=== PATIENT | female | born 2000 | race Caucasian/White ===

== ENCOUNTER 2019-05-12 07:19 | Emergency (ER) | payer OTHER ==
[~2019-05-12] VITALS: Ht 147.3 cm; Wt 74.9 kg
[2019-05-12 07:28] VITALS: BP 135/78
--- NOTE | 2019-05-12 07:35 | NUR ---
BIB FRIEND. AAO X4 C/O DYSURIA, LOWER ABDOMINAL PAIN RADIATING TO LEFT FLANK X 2 WEEKS. PT STATES SHE HAD FEVER AND CHILLS LAST NIGHT. PT TX OF TYLENOL AT 0400 TODAY WITH MILD RELIEF. PT DENIES N/V/D, SOB. PMH: DENIES MED RX:DENIES ALLERGY: DENIES
[2019-05-12 08:40] VITALS: BP 135/78
--- NOTE | 2019-05-12 08:41 | NUR ---
Patient discharged with v/s stable. Written and verbal after care instructions given and explained. Patient alert, oriented and verbalized understanding of instructions. Ambulatory with steady gait. All questions addressed prior to discharge. ID band removed. Patient advised to follow up with PMD. Rx of Macrobid, Pyridium given. Patient educated on indication of medication including possible reaction and side effects. Opportunity to ask questions provided and answered.
== END 2019-05-12 08:41 | disposition home or self-care (01) ==
LOC: MED 07:19
DX: N39.0 Urinary tract infection, site not specified (principal); R11.2 Nausea with vomiting, unspecified
CPT/HCPCS: 81002; 81025; 99283

== ENCOUNTER 2019-05-18 22:26 | Emergency (ER) | payer OTHER ==
[~2019-05-18] VITALS: Ht 147.3 cm; Wt 74.4 kg
[2019-05-18 22:36] VITALS: BP 127/94
[2019-05-18] MEDS ORDERED: KETOROLAC 60 MG/2 ML VIAL IM ONE (22:45)
[2019-05-18 23:12] VITALS: BP 142/96
== END 2019-05-18 23:12 | disposition home or self-care (01) ==
LOC: MED 22:26
DX: M54.5 Low back pain (principal); F12.10 Cannabis abuse, uncomplicated
CPT/HCPCS: 81002; 81025; 96372; 99283; J1885

== ENCOUNTER 2020-04-19 22:13 | Emergency (ER) | payer SELFPAY ==
[~2020-04-19] VITALS: Ht 147.3 cm; Wt 75.3 kg
[2020-04-19 22:44] VITALS: BP 135/83
--- NOTE | 2020-04-19 22:49 | NUR ---
PT AMBULATED TO LOBBY TO A/W BED
--- NOTE | 2020-04-19 23:02 | NUR ---
PT TAKEN TO XRAY
--- NOTE | 2020-04-19 23:08 | NUR ---
PT RETURN FROM XRAY TO ER BED 5
[2020-04-19] MEDS ORDERED: KETOROLAC 30 MG/ML VIAL IM ONE (23:25)
--- NOTE | 2020-04-19 23:25 | NUR ---
19 Y/O FEMALE PRESENTS TO ER WITH C/O RIGHT ARM/ELBOW PAIN S/P FALL X 2 HRS AGO. 06/12 PAIN. PT STATES SHE FELL ON THE BOTTOW STEPS AT THE END OF HER STAIRS AT HOME. DENIES HEAD TRAUMA, OR LOC, NAUSEA, VOMITING, DIARRHEA, NO DEFORMITIES NOTED ON THE RIGHT ARM/ELBOW. DENIES SOB, COUGH, FEVER, CHILLS. R/R EQUAL, AND UNLABORED, VSS. SIDE RAIL X1, BED IN LOW POSITION, WILL CONTINUE TO MONITOR. LMP: 03/16/20 DENIES PMH NKDA
--- NOTE | 2020-04-19 23:33 | NUR ---
SLINS SIZE MEDIUM PLACED ON PT R ARM
[2020-04-20 00:06] VITALS: BP 135/83
== END 2020-04-20 00:06 | disposition home or self-care (01) ==
LOC: MED 22:13
DX: S46.811A Strain of other muscles, fascia and tendons at shoulder and upper arm level, right arm, initial encounter (principal); W18.30XA Fall on same level, unspecified, initial encounter; Y93.89 Activity, other specified; Y92.89 Other specified places as the place of occurrence of the external cause; Y99.8 Other external cause status
CPT/HCPCS: 73080; 96372; 99283; J1885

== ENCOUNTER 2021-05-19 16:51 | Emergency (ER) | payer OTHER ==
[~2021-05-19] VITALS: Ht 146.1 cm; Wt 74.6 kg
[2021-05-19 17:05] VITALS: BP 129/72
--- NOTE | 2021-05-19 17:21 | NUR ---
BIB SELF C/O LOWER ABDOMINAL PAIN X 3 DAYS. PMH: DENIES.DENIES N/V/D; SKIN IS PINK/WARM/DRY; AAOX4 WITH EVEN AND STEADY GAIT; LUNGS CLEAR BL; HR EVEN AND REGULAR; PT DENIES ANY FEVER, CP, SOB, OR COUGH AT THIS TIME; PATIENT STATES PAIN OF 9/10 AT THIS TIME. ABD SOFT, NO TENDERNESS.
[2021-05-19] MEDS ORDERED: DICYCLOMINE HCL LIQUID 20 MG, ALUMINUM HYD/MAG/SIMETHICONE 30 ML, LIDOCAINE VISCOUS 2% ... PO ONE ×3 (17:55)
[2021-05-19] MEDS ORDERED: ONDANSETRON 4 MG ODT PO ONE (17:55)
--- NOTE | 2021-05-19 17:56 | NUR ---
DR. MCKINNEY WITH PT IN TRIAGE FOR FURTHER EVALUATION.
--- NOTE | 2021-05-19 17:57 | NUR ---
PT TO WAIT IN LOBBY.
[2021-05-19] MEDS ORDERED: DICYCLOMINE HCL LIQUID 10 MG/5 ML UDC ONE (18:02)
[2021-05-19] MEDS ORDERED: ALUMINUM HYD/MAG/SIMETHICONE 30 ML UDC ONE (18:02)
--- NOTE | 2021-05-19 18:07 | NUR ---
SODA JERKER WITH PT.
[2021-05-19 18:17] LABS: BASOPHILS # (AUTO) 0.1 K/uL (0.00-0.22); BASOPHILS % (AUTO) 0.6 % (0.0-2.0); EOSINOPHILS # (AUTO) 0.1 K/uL (0-0.4); EOSINOPHILS % (AUTO) 0.7 % (0.0-4.0); HEMOGLOBIN 15.6 g/dL (12.0-16.0); LYMPHOCYTES # (AUTO) 2.5 K/uL (2.5-16.5); MEAN CORPUSCULAR HEMOGLOBIN 33 pg (27-31); MEAN CORPUSCULAR HGB CONC 35 g/dL (33-37); MEAN CORPUSCULAR VOLUME 94.3 fL (80-94); MONOCYTES # (AUTO) 0.8 K/uL (0.8-1.0); MONOCYTES % (AUTO) 6.9 % (1.7-9.3); NEUTROPHILS # (AUTO) 7.5 K/uL (1.8-7.7); NEUTROPHILS % (AUTO) 68.8 % (42.2-75.2); PLATELET COUNT (AUTO) 354 K/uL (140-450); RED BLOOD CELL COUNT(AUTO) 4.77 MIL/uL (4.20-5.40); RED CELL DISTRIBUTION WIDTH 13.5 % (11.6-13.7); WHITE BLOOD COUNT (AUTO) 10.9 K/uL (4.8-10.8)
[2021-05-19] MEDS ORDERED: FAMO-92 PO (21:20)
[2021-05-19] MEDS ORDERED: ONDA-24 SL (21:20)
[2021-05-19 21:32] LABS: ALBUMIN 4.3 g/dL (3.4-5.0); ANION GAP 13.9 (8-16); CARBON DIOXIDE 27.4 mmol/L (21-32); CREATININE 0.8 mg/dL (0.6-1.3); POTASSIUM 4.3 mmol/L (3.5-5.1); TOTAL BILIRUBIN 0.2 mg/dL (0.0-1.0)
[2021-05-19 22:26] VITALS: BP 118/71
--- NOTE | 2021-05-19 22:28 | NUR ---
Patient discharged with v/s stable. Written and verbal after care instructions given and explained. Patient alert, oriented and verbalized understanding of instructions. Ambulatory with steady gait. All questions addressed prior to discharge. ID band removed. Patient advised to follow up with PMD. Rx of ZOFRAN AND PEPCID given. Patient educated on indication of medication including possible reaction and side effects. Opportunity to ask questions provided and answered.
== END 2021-05-19 22:26 | disposition home or self-care (01) ==
LOC: MED 16:51
DX: K29.70 Gastritis, unspecified, without bleeding (principal); R19.7 Diarrhea, unspecified; R11.0 Nausea; Z79.899 Other long term (current) drug therapy
CPT/HCPCS: 36415; 80053; 81025; 83690; 85025; 99283; Q0162; 81002

== ENCOUNTER 2021-09-05 20:17 | Emergency (ER) | payer OTHER ==
[~2021-09-05 20:17] MED LIST: FAMO-92 PO; ONDA-188 SL
--- NOTE | 2021-09-05 20:38 | NUR ---
PATIENT LEFT WITHOUT BEING SEEN BY DR. GUEVARA. NO FURTHER CARE PROVIDED FOR PATIENT.
== END 2021-09-05 20:38 | disposition left against medical advice (07) ==
LOC: MED 20:17
DX: R10.9 Unspecified abdominal pain (principal); Z53.21 Procedure and treatment not carried out due to patient leaving prior to being seen by health care provider

== ENCOUNTER 2022-06-09 12:04 | Emergency (ER) | payer OTHER ==
[~2022-06-09] VITALS: Ht 154.9 cm; Wt 71.2 kg
[2022-06-09 12:15] VITALS: BP 143/92
[2022-06-09] MEDS ORDERED: predniSONE 20 MG TAB PO ONE (13:00)
[2022-06-09] MEDS ORDERED: FAMOTIDINE 20 MG TAB PO ONE (13:00)
[2022-06-09] MEDS ORDERED: diphenhydrAMINE 50 MG CAP PO ONE (13:00)
--- NOTE | 2022-06-09 13:05 | NUR ---
PT AMBULATED TO ER BED 6
[2022-06-09] MEDS ORDERED: PRED20TA5 PO (13:13)
[2022-06-09] MEDS ORDERED: DIPH25TA53 PO (13:13)
[2022-06-09] MEDS ORDERED: LORA10SG1 PO (13:13)
[2022-06-09 13:24] VITALS: BP 128/84
--- NOTE | 2022-06-09 13:24 | NUR ---
Patient discharged with v/s stable. Written and verbal after care instructions given. Patient alert, oriented and verbalized understanding of instructions. Ambulatory with steady gait. All questions addressed prior to discharge. ID band removed. Patient advised to follow up with PMD. Rx of Benadryl, Claritin and Prednisone given. Opportunity to ask questions provided and answered.
--- NOTE | 2022-06-09 13:25 | NUR ---
The patient's care was reviewed and supervised by Caroline Louis RN, RN.
== END 2022-06-09 13:24 | disposition home or self-care (01) ==
LOC: MED 12:04
DX: R03.0 Elevated blood-pressure reading, without diagnosis of hypertension (principal); L29.9 Pruritus, unspecified; Z79.899 Other long term (current) drug therapy
CPT/HCPCS: 99284; J7512; Q0163

== ENCOUNTER 2023-03-11 12:26 | Emergency (ER) | payer OTHER ==
[~2023-03-11] VITALS: Ht 149.9 cm; Wt 70.5 kg
[~2023-03-11 12:26] MED LIST changes: +DIPH25TA53 PO; +LORA10SG1 PO; +PRED20TA5 PO
[2023-03-11 12:43] VITALS: BP 130/87; PULSE 96; RESP 20; TEMP 98.1; O2SAT 99
--- NOTE | 2023-03-11 13:09 | NUR ---
CALLED BY TELETYPE TECHNICIAN [facility] BLOOD WORK;NO ANSWER
--- NOTE | 2023-03-11 13:33 | NUR ---
TO ER BED 2
[2023-03-11 13:45] LABS: BASOPHILS # (AUTO) 0.1 K/uL (0.00-0.22); BASOPHILS % (AUTO) 0.4 % (0.0-2.0); EOSINOPHILS % (AUTO) 0.1 % (0.0-4.0); HEMATOCRIT 41.3 % (36-48); HEMOGLOBIN 14.3 g/dL (12.0-16.0); LYMPHOCYTES # (AUTO) 1.2 K/uL (2.5-16.5); LYMPHOCYTES % (AUTO) 6.6 % (20.5-51.1); MEAN CORPUSCULAR HEMOGLOBIN 32 pg (27-31); MEAN CORPUSCULAR HGB CONC 35 g/dL (33-37); MEAN CORPUSCULAR VOLUME 92.1 fL (80-94); MONOCYTES # (AUTO) 0.3 K/uL (0.8-1.0); MONOCYTES % (AUTO) 1.8 % (1.7-9.3); NEUTROPHILS % (AUTO) 91.1 % (42.2-75.2); PLATELET COUNT (AUTO) 319 K/uL (140-450); RED BLOOD CELL COUNT(AUTO) 4.49 MIL/uL (4.20-5.40); RED CELL DISTRIBUTION WIDTH 13.1 % (11.6-13.7); WHITE BLOOD COUNT (AUTO) 18.7 K/uL (4.8-10.8)
--- NOTE | 2023-03-11 13:49 | NUR ---
Urine sample walked to lab.
[2023-03-11 13:53] LABS: BILIRUBIN,URINE NEGATIVE (NEGATIVE); BLOOD, URINE 3+ (NEGATIVE); COLOR,URINE YELLOW (YELLOW); LEUKOCYTE ESTERASE ,URINE 2+ (NEGATIVE); NITRITE, URINE POSITIVE (NEGATIVE); UGLUCOSE NEGATIVE (NEGATIVE)
[2023-03-11 13:54] LABS: APPEARANCE,URINE CLOUDY (CLEAR)
[2023-03-11 14:01] LABS: ALBUMIN 4.1 g/dL (3.4-5.0); ANION GAP 13.8 (8-16); CARBON DIOXIDE 25.4 mmol/L (21-32); CREATININE 0.8 mg/dL (0.6-1.3); POTASSIUM 3.2 mmol/L (3.5-5.1); TOTAL BILIRUBIN 0.6 mg/dL (0.0-1.0)
[2023-03-11 14:04] LABS: RBC,URINE 11-20 (MOD) /HPF (0-5)
--- NOTE | 2023-03-11 14:05 | NUR ---
22 y/o female bib self for c/o mid lower abdominal pain x 4 days. Denies any sick contacts or new foods. Patient denies taking any medication for symptoms. Denies any dysuria or foul smelling urine. Patient reports subjective fever. Patient has call light within reach. Medical History: Denies NKDA
[2023-03-11] MEDS ORDERED: KETOROLAC 15 MG/ML VIAL IM ONE (14:10)
--- NOTE | 2023-03-11 14:10 | NUR ---
Patient was offered juice.
--- NOTE | 2023-03-11 14:18 | NUR ---
Dr. Rodriguez re-evaluating patient at bedside.
[2023-03-11] MEDS ORDERED: POTASSIUM CHLORIDE 10 MEQ TABER PO ONE (14:20)
[2023-03-11] MEDS ORDERED: cephALEXin 500 MG CAP PO ONE (14:20)
[2023-03-11] MEDS ORDERED: ONDANSETRON 4 MG ODT PO ONE (14:20)
[2023-03-11] MEDS ORDERED: PYR100 PO (14:31)
[2023-03-11] MEDS ORDERED: IBUP-2213 PO (14:31)
[2023-03-11] MEDS ORDERED: CEPH-588 PO (14:31)
[2023-03-11 15:02] VITALS: BP 126/73; PULSE 98; RESP 20; TEMP 97.8; O2SAT 97
--- NOTE | 2023-03-11 15:02 | NUR ---
Patient reports pain relief with medication. Pain is decreasing. Patient discharged with v/s stable. Written and verbal after care instructions given. Patient alert, oriented and verbalized understanding of instructions. Ambulatory with steady gait. All questions addressed prior to discharge. ID band removed. Patient advised to follow up with PMD. Rx of KEFLEX, PYRIDIUM AND IBUPROFEN given. Opportunity to ask questions provided and answered. WORK NOTE GIVEN TO PATIENT.
== END 2023-03-11 15:02 | disposition home or self-care (01) ==
LOC: MED 12:26
DX: N30.90 Cystitis, unspecified without hematuria (principal); D72.829 Elevated white blood cell count, unspecified; E87.6 Hypokalemia; Z79.899 Other long term (current) drug therapy
CPT/HCPCS: 36415; 80053; 81001; 81025; 83690; 85025; 87086; 96372; 99284; J1885; Q0162

== ENCOUNTER 2024-05-18 12:54 | Emergency (ER) | payer OTHER ==
[~2024-05-18] VITALS: Ht 149.9 cm; Wt 72.6 kg
[~2024-05-18 12:54] MED LIST changes: +CEPH-588 PO; +IBUP-2213 PO; +PYR100 PO
[2024-05-18 13:01] VITALS: BP 139/93; PULSE 101; RESP 16; TEMP 97.2; O2SAT 99
[2024-05-18] MEDS ORDERED: HYDR-2734 TP (14:12)
[2024-05-18 14:22] VITALS: PULSE 88; RESP 16
== END 2024-05-18 14:22 | disposition home or self-care (01) ==
LOC: MED 12:54
DX: K62.5 Hemorrhage of anus and rectum (principal); R03.0 Elevated blood-pressure reading, without diagnosis of hypertension; Z79.899 Other long term (current) drug therapy
CPT/HCPCS: 99282